=== PATIENT | female | born 2005 | race Caucasian/White ===

== ENCOUNTER 2023-06-08 12:30 | Emergency (ER) | payer MEDICAID ==
[~2023-06-08] VITALS: Ht 165.1 cm; Wt 59.0 kg
[2023-06-08 13:02] VITALS: O2SAT 97
[2023-06-08] MEDS ORDERED: CEPH500T MT (14:20)
[2023-06-08 15:27] VITALS: BP 110/73; PULSE 85; RESP 18; TEMP 97.7
== END 2023-06-08 15:29 | disposition home or self-care (01) ==
LOC: ER 12:45
DX: L60.0 Ingrowing nail (principal); Z98.890 Other specified postprocedural states
CPT/HCPCS: 99283

== ENCOUNTER 2023-08-06 11:06 | Emergency (ER) | payer MEDICAID, OTHER ==
[~2023-08-06] VITALS: Ht 154.9 cm; Wt 56.6 kg
[~2023-08-06 11:06] MED LIST: CEPH500T MT
[2023-08-06 11:17] VITALS: O2SAT 100
[2023-08-06 13:17] VITALS: BP 115/60; PULSE 94; RESP 19; TEMP 97.8
== END 2023-08-06 13:19 | disposition home or self-care (01) ==
LOC: ER 11:06
DX: N76.4 Abscess of vulva (principal)
CPT/HCPCS: 99283